=== PATIENT | male | born 1980 | race Caucasian/White ===

== ENCOUNTER 2020-03-03 00:09 | Emergency (ER) | payer MEDICAID, SELFPAY ==
[2020-03-03 00:10] VITALS: BP 135/79; PULSE 16; TEMP 36.6; O2SAT 97; BMI 21.0
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
--- NOTE | 2020-03-03 00:25 | ED.DCSUM_ITS ---
History of Present Illness Chief Complaint: Upper Extremity Injury Informant: Patient Occurred: Weeks Mechanism/Context: Injury Narrative: Patient is a 40-year-old male who denies any significant past medical history presenting with right wrist and hand pain. Patient states a couple weeks ago he was using a punching bag when he hyperflexed his right wrist. He states since then he has had pain. He notes that over the past few days the pain is been even worse. He has pain shooting from his wrist into his hands and has paresthesias of his hand diffusely. It is worse whenever he tries to move his wrist. Patient is left-hand dominant. 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 He denies any other complaints at this time. He has taken ibuprofen with no relief. His last dose was approximately 8 hours ago. Past Medical History - Allergies and Home Meds Allergies/Adverse Reactions: Allergies No Known Allergies Allergy (Verified 03/03/20 00:11) Primary Care Physician: NOT,DEFINED [NON-STAFF] - Smoking Status: Never smoker Review of Systems General: Denies: Chills, Fever, Sweats Eyes: Denies: Visual changes - bilaterally, Diplopia ENT: Denies: Rhinorrhea, Sore throat Cardiovascular: Denies: Chest pain, Palpitations Respiratory: Denies: Dyspnea, Cough Gastrointestinal: Denies: Abdominal pain, Nausea, Vomiting Musculoskeletal: Reports: Swelling - right hand, Extremity Pain - right wrist/hand. Denies: Back pain Skin: Denies: Rash, Wounds Neurological: Reports: Parasthesia - right hand . Denies: Headache, Weakness, Numbness Physical Exam Vital Signs/Narrative: Vital Signs Temp Pulse BP Pulse Ox 03/03/20 00:10 97.8 F 16 L 135/79 H 97 Inital Vital Signs reviewed: Yes Right Elbow: Negative for: Abrasion, Deformity, Edema, Hematoma, Limited ROM Right Forearm: Negative for: Abrasion, Deformity, Edema, Hematoma, Limited ROM Right Wrist: - - diffuse tenderness to palpation. Pain is worse with palpation of the carpal tunnel.. Negative for: Deformity, Edema, Limited ROM Right Hand: Negative for: Abrasion, Deformity, Edema, Limited ROM General: Well nourished, Well developed Head: Normocephalic, Atraumatic Eyes: Perrl, EOMI ENT: No Trauma, Moist Mucous Membranes Neck: Nontender, Full ROM Cardiovascular: Regular rate, Regular rhythm, - - 2+ radial pulses Respiratory: No distress, Chest nontender Back: Nontender Skin: Normal color, No rash, - - 1 cm nontender blood blister present at the rig ht palm at the base of the fourth finger Neurological: Alert, Oriented x3, Cranial nerves II-XII grossly intact, Normal Strength, Normal Sensation Psychological: Normal affect Diagnostic/Tx/Re-eval Clinical Impression(s) from Imaging Studies Hand X-Ray 03/03/20 00:24 IMPRESSION: Normal x-ray examination of the hand. Electronically Signed: Nathan Graham MD at 0:45 EDT , Service support , Wrist X-Ray 03/03/20 00:24 IMPRESSION: Normal x-ray examination of the wrist. Electronically Signed: Nathan Graham MD at 0:43 EDT , Service support , - Medical Decision Making Patient is evaluated for worsening pain of his right wrist. He injured it about 3 weeks ago with a hyper flexion injury and is now been worse for the past 2 days. Patient has been helping a friend out with catrachita which is likely exacerbating it. He does not have any obvious deformity. The tenderness is actually most pronounced over the carpal tunnel and palpation of the carpal tunnel causes paresthesias of the hands. Likely there is associated swelling there which is causing his symptoms. Patient be placed in a wrist splint and started on a course of steroids. Patient is given Motrin in the ER for pain control. He will be given Ortho for outpatient follow-up. Patient states he does not need a work note. He is counseled on rice therapy. Patient is counseled on signs and symptoms requiring return to the emergency room. Patient verbalizes agreement and understand this plan. Patient discharged home in s table and improved condition. He does have a ring on his right ring finger. Unable to remove it. He does not have any circulation defects from it but does not want to cut off. States he can return to the emergency room or cut off himself as needed. ED Disposition - Plan for ED Patient: Disposition: Home or Assisted Living Diagnosis: Right wrist injury Instructions: ED Sprain Wrist, ED Carpal Tunnel Prescriptions: Prednisone [Deltasone] 40 mg PO DAILY #8 tab Transmission Status: Pending to [facility] Referrals: Artur Call DO [STAFF PHYSICIAN] - Additional Instructions: Alternate Tylenol and ibuprofen as needed for pain. Wear the splint as much as possible to rest your wrist. I recommend that you wear it when you sleep. You were given orthopedist to follow-up with. Try soaking your hand in ice water to remove your ring. If you have further swelling please return the emergency room if you cannot get her ring off and we can remove it for you.
[2020-03-03] MEDS: Acetaminophen 500 MG Tablet 1000 MG PO (00:39)
[2020-03-03] MEDS: Ibuprofen 600 MG Tablet PO (00:39)
[2020-03-03] MEDS: predniSONE 20 MG Tablet 40 MG PO (01:02)
[2020-03-03 01:12] VITALS: BP 124/71; PULSE 74; RESP 18; O2SAT 99
== END 2020-03-03 01:20 | disposition home or self-care (01) ==
PROVIDERS: Emergency Provider Emergency Medicine
DX: S69.91XA Unspecified injury of right wrist, hand and finger(s), initial encounter (principal); S60.521A Blister (nonthermal) of right hand, initial encounter; M79.89 Other specified soft tissue disorders; R20.2 Paresthesia of skin; W21.89XA Striking against or struck by other sports equipment, initial encounter; Y93.89 Activity, other specified; Y92.9 Unspecified place or not applicable; Y99.9 Unspecified external cause status; Z79.899 Other long term (current) drug therapy
CPT/HCPCS: 73110; 73130; 99284

== ENCOUNTER 2020-03-09 08:46 | Emergency (ER) | payer MEDICAID, SELFPAY ==
[2020-03-09 08:47] VITALS: BP 145/64; PULSE 73; RESP 18; TEMP 36.6; O2SAT 100; BMI 22.3
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
[2020-03-09] MEDS: Ketorolac 60 MG/2 ML Vial IM (09:42)
== END 2020-03-09 10:30 | disposition home or self-care (01) ==
PROVIDERS: Emergency Provider Emergency Medicine
DX: S16.1XXA Strain of muscle, fascia and tendon at neck level, initial encounter (principal); S63.501A Unspecified sprain of right wrist, initial encounter; S80.02XA Contusion of left knee, initial encounter; S50.02XA Contusion of left elbow, initial encounter; R07.9 Chest pain, unspecified; V43.62XA Car passenger injured in collision with other type car in traffic accident, initial encounter; Y93.9 Activity, unspecified; Y92.410 Unspecified street and highway as the place of occurrence of the external cause; Y99.9 Unspecified external cause status; F17.200 Nicotine dependence, unspecified, uncomplicated; Z79.899 Other long term (current) drug therapy
CPT/HCPCS: 71046; 72040; 72170; 73564; 96372; 99282